=== PATIENT | male | born 1955 | race Caucasian/White ===

== ENCOUNTER 2017-04-16 20:12 | Emergency (ER) | payer OTHER ==
[~2017-04-16] VITALS: Ht 177.8 cm; Wt 100.0 kg
[2017-04-16 20:18] VITALS: BP 167/88; PULSE 48; RESP 16; O2SAT 99
--- NOTE | 2017-04-16 20:31 | ED.REPORT ---
HPI-Trauma Multiple Date of Service Apr 16, 2017 ED Provider: Lebron Easley MD Patient is a 61 year old male who presents to the ED after falling approximately 8 feet off of a ladder. He complains of left rib pain and left elbow pain. Patient denies numbness, shortness of breath, losing consciousness or hitting his head. The patient reports that the pain is exacerbated with deep inhalation in his chest and that he is unable to fully extend his elbow. The patient reports that he fell onto his left side on a boulder. Patient is not currently on anticoagulants. Nursing Notes Stated Complaint: LEFT ARM, ELBOW, RIB PAIN FALL FROM LADDER Chief Complaint: Multiple Trauma/Fall Nursing Notes Reviewed: Yes Allergies: Coded Allergies: shellfish derived (Verified Allergy, Severe, Anaphylaxis, 04/16/17) General Time Seen by Provider: 20:34 Chief Complaint Other (rib) Hx Obtained From: Patient Arrived By: Walk-in Onset Occurred: Just prior to arrival Symptom Duration: Since onset Caused by: Fall from (ladder) Location: : Chest: Elbow left Quality: Painful Severity: Current: Moderate Similar Sx Previous: No Past Medical History Social History Other Social History: Good social support, Ambulatory Status Independent Review of Systems Respiratory: Denies: Shortness of breath Cardiovascular: Reports: Chest pain Musculoskeletal: Reports: Extremity pain Neurologic: Denies: Change LOC, Headache, Numbness, Problem walking Complete sys rev & neg: except as marked. Physical Exam Initial Vital Signs Vital Signs (First) Date Time Temp Pulse Resp B/P Pulse Ox O2 Delivery O2 Flow Rate FiO2 04/16/17 20:18 36.9 48 16 167/88 99 Room Air Initial VS: Reviewed General/Constitutional: Awake, Alert Head / Eyes: Atraumatic, Normocephalic, PERRL, EOMI superficial left maxilla abrasion with dried blood extraoccular movements intact Neck: Atraumatic, Supple, Full range of motion no midline cervical tenderness no bony tenderness no step offs Respiratory / Chest: Atraumatic, Breath sounds NL, Breath sounds = bilat, No respiratory distress no ecchymosis or abrasions about the chest wall no crepitus tender about the left lateral inferior ribs no palpable rib deformity Cardiovascular: Heart rate NL, Regular rhythm, Heart sounds NL, No gallop, No murmurs, No rubs Abdomen: Atraumatic, Soft, Non-tender, No distention Back: Atraumatic, Non-tender Neurologic: Oriented X3, Speech NL ENT: Atraumatic, Airway patent, Mucous membranes moist no intra oral trauma Upper Ext Brief Normals: Shoulder R exam normal, Shoulder L exam normal left shoulder non tender superficial abrasion overlying the left elbow patient is holding his left elbow partially flexed and is unable to fully extend Wrist / Hand: Atraumatic, Inspection NL good radial pulses Lower Extremity / Pelvis / MS: Atraumatic, Full range of motion, Gait NL superficial abrasion bilateral lower extremities able to stand and ambulate without difficulty Skin: Atraumatic, Color NL, No rash, Warm, Dry Interpretation & Diagnostics X-Ray Chest Interpretation Chest Xray Interpretation: IMPRESSION: No displaced rib fracture identified. Dictated by: Rose Arndt MD, PhD on 04/16/2017 at 21:07 Approved by: Rose Arndt MD, PhD on 04/16/2017 at 21:08 Interpretation / Wet Read by: Interpret - Radiologist X-Ray Interpretation Xray Interpretation: IMPRESSION: Radial head fracture. Dictated by: Rose Arndt MD, PhD on 04/16/2017 at 21:08 Approved by: Rose Arndt MD, PhD on 04/16/2017 at 21:09 X-Ray Ordered: Elbow left Interpretation / Wet Read by: Interpret - Radiologist Procedures Splint Application - Fx Mgt Time: 21:38 Procedure Performed by: Shift Superintendent Caustic Cresylate Precise Anatomic Location: left elbow Type of Immobilization: Sling, Sugar tong Definitive Fracture Care: Sling, Splint Post-Procedure / Complications: Cap refill normal, Post splint vascular nl, Post splint neuro nl, Condition improved, Tolerated procedure well, Patient stable Splint Post-Applic Eval Splint Post-Application Eval: left elbow Extremity Condition: Cap refill < 2 sec, Distal sensation intact, Distal motor Intact, No compartment syndrome Re-Eval/Medical Decision Med Decision/Clinical Course Patient is a 61 year old male who presents to the ED after falling approximately 8 feet off of a ladder. He complains of left rib pain and left elbow pain. Patient denies numbness, shortness of breath, losing consciousness or hitting his head. The patient reports that the pain is exacerbated with deep inhalation in his chest and that he is unable to fully extend his elbow. The patient reports that he fell onto his left side on a boulder. Patient is not currently on anticoagulants. He did not strike his head or lose consciousness. Here in the emergency department the patient is afebrile, hemodynamically stable and in no apparent distress. He is noted to be holding his left elbow in partial flexion and has tenderness diffusely about the left lateral ribs without any crepitance or palpable deformity. The patient was given oxycodone for pain with good effect. Plain films of the left elbow demonstrated left radial head elbow fracture Plain films of the ribs per radiology interpretation demonstrated no pneumothorax or acute fracture though in my interpretation there was one possible rib fracture present. Remainder of full head to toe survey revealed no other associated injuries and the patient remained hemodynamically stable and in no apparent distress. There are no findings suggestive of significant trauma to the chest, abdomen or pelvis. He was placed in a left long-arm posterior splint and remained neurovascularly intact thereafter. He is provided with a sling and has been referred to orthopedic surgery for further management of his left radial head fracture. He has been provided with an incentive spirometer and advised to use this frequently. The patient was provided with a take home pack of [place] for pain and will call tomorrow morning to follow up with his primary care physician as well as the orthopedic surgeon. Prior to discharge follow-up and return precautions were reviewed in detail with the patient who verbalized understanding and agreement with the plan. The patient was discharged in stable condition. Re-Evaluation/Progress : Time of Eval: 21:39 Re-Evaluation/Progress Note: Discussed results and plan for discharge. Patient understands and agrees to plan. All questions were addressed. Counseled Regarding: Diagnosis, Lab results, Need for follow-up, When/why to return to ED Discharge & Departure Impression: Primary Impression: Fall from ladder Encounter type: initial encounter Qualified Code: W11.XXXA - Fall on and from ladder, initial encounter Additional Impressions: Left rib fracture Encounter type: initial encounter Rib fracture type: single rib Fracture type: closed Qualified Code: S22.32XA - Fracture of one rib, left side, initial encounter for closed fracture Left elbow fracture Encounter type: initial encounter Fracture type: closed Qualified Code: S42.402A - Unspecified fracture of lower end of left humerus, initial encounter for closed fracture Disposition: Home Discharge Condition All VS Reviewed: Yes Condition: Stable Patient Instructions: Elbow Fracture (ED) Additional Instructions: Thank you for seeking care at the emergency room. Our primary goal today in the Emergency Department was to evaluate you for any life-threatening conditions. Your evaluation was reassuring. You may have a rib fracture and the x-ray showed that you do have a fracture in your elbow. Take the pain medication as prescribed. Use the incentive spirometer as instructed. You should follow-up with the referred orthopedic surgeon regarding your elbow fracture. Call tomorrow to schedule an appointment. You should return to the Emergency Department immediately if you develop increasing pain, shortness of breath, cough, difficulty breathing or any other concerning signs or symptoms. Thank you for letting us partake in your care today. You have been prescribed a narcotic for pain relief. These drugs are usually combined with acetaminophen (Tylenol#3, Percocet, Darvocet, Anexsia, Vicodin) or aspirin (Empirin#3, Percodan, Synalogs-DC) for increased effect. Narcotics act on the central nervous system to reduce pain; they also impair mental alertness and physical abilities. We advise you not to drink alcohol, drive a car, or operate dangerous equipment when you are taking these drugs. You can lessen stomach irritation from your medicine by taking it with meals or a full glass of water. Common side effects of narcotics are: Nausea and vomiting , heartburn, constipation, dizziness, sleepiness, and mood changes. If you have bothersome side effects or symptoms of an allergic reaction (itching, hives, rash), stop taking your medicine and call your doctor or the emergency room right away. Please keep your narcotic medicine well out of the reach of children. Referrals: Bk Mijares MD Attestation Portions of this note were transcribed by Renetta Middleton. I, Dr. Easley personally performed the history, physical exam and medical decision-making; I reviewed and confirmed the accuracy of the information in the transcribed note. Signed by: Jerad Crow, 04/16/17 copies to: Bk Mijares MD, Beck O MD Apr 16, 2017 20:31 Lakshmi Middleton Apr 16, 2017 20:36
[2017-04-16] MEDS ORDERED: _HYDROcodone/APAP 5-325 mg Tablet PO PRN (21:00)
--- NOTE | 2017-04-16 21:10 | DRSVH ---
PROCEDURE: X-RAY LEFT RIBS, TWO VIEWS ([id number]) INDICATIONS: fall off ladder TECHNIQUE: 2 views of the left ribs were acquired. COMPARISON: None. FINDINGS: Surgical changes and devices: None. Bones and chest wall: No fractures or dislocations. No suspicious bony lesions. Overlying soft tis sues appear unremarkable. Lungs and pleura: The visualized lung appears clear. No pleural effusions or pneumothorax are visib le. IMPRESSION: No displaced rib fracture identified. Dictated by: Rose Arndt MD, PhD on 04/16/2017 at 21:07 Approved by: Rose Arndt MD, PhD on 04/16/2017 at 21:08
--- NOTE | 2017-04-16 21:11 | DRSVH ---
PROCEDURE: X-RAY LEFT ELBOW COMPLETE, MINIMUM THREE VIEWS ([id number]) INDICATIONS: fall off ladder TECHNIQUE: 3 views of the elbow were acquired. COMPARISON: None. FINDINGS: Bones: Mildly displaced radial head fracture is noted. Soft tissues: Joint effusion noted. No suspicious soft tissue calcifications. IMPRESSION: Radial head fracture. Dictated by: Rose Arndt MD, PhD on 04/16/2017 at 21:08 Approved by: Rose Arndt MD, PhD on 04/16/2017 at 21:09
[2017-04-16] MEDS ORDERED: TdaP Vaccine 0.5 mL Inj IM ONE (21:45)
== END 2017-04-16 23:01 | disposition home or self-care (01) ==
LOC: SED 20:12
DX: S22.32XA Fracture of one rib, left side, initial encounter for closed fracture (principal); S52.122A Displaced fracture of head of left radius, initial encounter for closed fracture; S00.81XA Abrasion of other part of head, initial encounter; W11.XXXA Fall on and from ladder, initial encounter; Y93.89 Activity, other specified; Y99.8 Other external cause status; Y92.008 Other place in unspecified non-institutional (private) residence as the place of occurrence of the external cause; Z23 Encounter for immunization